=== PATIENT | female | born 1975 | race Caucasian/White ===

== ENCOUNTER 2018-10-26 01:57 | Emergency (ER) | payer BC ==
[2018-10-26] MEDS: HYDROCODONE/APAP (10/325) TAB PO (04:20)
== END 2018-10-26 05:08 | disposition home or self-care (01) ==
LOC: E/R 01:57
DX: J95.831 Postprocedural hemorrhage of a respiratory system organ or structure following other procedure (principal)
CPT/HCPCS: 99282; Z7502